=== PATIENT | female | born 1990 | race Caucasian/White ===

== ENCOUNTER 2020-01-05 16:28 | Emergency (ER) | payer MEDICAID ==
[~2020-01-05] VITALS: Ht 154.9 cm; Wt 62.2 kg
[2020-01-05 16:32] VITALS: Ht 154.9 cm; Wt 62.2 kg
[2020-01-05 17:35] LABS: BASOPHIL % 0.9 % (0-2); PLATELET COUNT 248 x10^3mcL (130-400)
[2020-01-05 17:50] LABS: CALCIUM 8.4 mg/dL (8.5-10.1); CARBON DIOXIDE 26.1 mmol/L (21-32); CHLORIDE SERUM 102 mmol/L (98-107); CREATININE SERUM 0.5 mg/dL (0.6-1.0); GFR1 > 60 mL/min; GLUCOSE SERUM 84 mg/dL (74-106); POTASSIUM SERUM 3.8 mmol/L (3.5-5.1); SODIUM SERUM 136 mmol/L (136-145)
[2020-01-05 17:54] LABS: ALBUMIN 3.7 g/dL (3.4-5.0); ALKALINE PHOSPHATASE 63 U/L (46-116); ALT/SGPT 25 U/L (14-59); AST/SGOT 14 U/L (15-37); BILIRUBIN TOTAL 0.3 mg/dL (0.20-1.00); LIPASE 82 IU/L (73-393); TOTAL PROTEIN, SERUM 7.4 g/dL (6.4-8.2)
[2020-01-05 21:02] VITALS: BP 108/70
== END 2020-01-05 21:02 | disposition home or self-care (01) ==
LOC: ED 16:28
PROVIDERS: Emergency Medicine
DX: O99.611 Diseases of the digestive system complicating pregnancy, first trimester (principal); K29.70 Gastritis, unspecified, without bleeding; Z3A.10 10 weeks gestation of pregnancy
CPT/HCPCS: 36415; Q0092